=== PATIENT | female | born 2000 | race Hispanic/Latino ===

== ENCOUNTER → 2019-06-29 | Outpatient (CLI) | payer OTHER ==
--- NOTE | 2019-06-29 08:30 | Diagnostic Imaging Report ---
EXAM: US THYROID DATE: 06/29/2019 7:44 AM INDICATION: Nontoxic goiter COMPARISON: None FINDINGS: The right thyroid lobe is normal in size measuring 5.2 x 1.2 x 1.2 cm. The thyroid parenchyma is homogeneous without evidence for focal nodule. The isthmus measures 3 mm in thickness and appears unremarkable. The left thyroid lobe is normal in size measuring 5.4 x 1.1 x 1.3 cm. The thyroid parenchyma is homogeneous without evidence for focal nodule. Thyroid vascularity is within normal limits. IMPRESSION: Unremarkable thyroid ultrasound examination. Signed by: Dr. Errol Magana MD on 06/29/2019 8:27 AM
== END ==
LOC: US 07:38
PROVIDERS: ATTEND Family Medicine
DX: E04.9 Nontoxic goiter, unspecified (principal)
CPT/HCPCS: 76536